=== PATIENT | female | born 1995 | race Caucasian/White ===

== ENCOUNTER 2019-05-19 03:15 | Emergency (ER) | payer SELFPAY ==
[~2019-05-19] VITALS: Ht 167.6 cm; Wt 49.9 kg
--- NOTE | 2019-05-19 03:46 | NUR ---
BIBBOYFRIEND C/O R SIDE ABDOMINAL PAIN X1 HOUR, PROGRESSIVELY GETTING WORSE, +VOMITING, DOES NOT RECAL LAST BM, TO ER EBD 2, VSS, URINE SENT TO LAB
[2019-05-19 03:51] LABS: APPEARANCE,URINE Clear (CLEAR); BILIRUBIN,URINE Negative (NEGATIVE); BLOOD, URINE Negative Ery/uL (NEGATIVE); COLOR,URINE Yellow (YELLOW); KETONES,URINE Negative (NEGATIVE); LEUKOCYTE ESTERASE ,URINE Negative (NEGATIVE); NITRITE, URINE Negative (NEGATIVE); PH,URINE 6.5 (5.0-8.0); PROTEIN,URINE Negative (NEGATIVE); UGLUCOSE Negative (NEGATIVE); UROBILINOGEN,URINE 0.2 EU/dL (0.2)
[2019-05-19] MEDS ORDERED: DOCUSATE SODIUM LIQ 100 MG/10 ML UDC ONE (04:12)
[2019-05-19] MEDS ORDERED: MAGNESIUM CITRATE 296 ML BOTTLE ONE (04:12)
[2019-05-19 04:30] VITALS: BP 116/91
[2019-05-19] MEDS ORDERED: MAGNESIUM CITRATE 296 ML BOTTLE PO ONE (04:30)
[2019-05-19] MEDS ORDERED: DOCUSATE SODIUM LIQ 100 MG/10 ML UDC PO ONE (04:30)
--- NOTE | 2019-05-19 04:30 | NUR ---
Patient discharged to home in stable condition. Written and verbal after care instructions given. Patient verbalizes understanding of instruction.
== END 2019-05-19 04:31 | disposition home or self-care (01) ==
LOC: ER 03:18
DX: K59.00 Constipation, unspecified (principal); F17.200 Nicotine dependence, unspecified, uncomplicated; Z88.0 Allergy status to penicillin
CPT/HCPCS: 74018; 81000-TC; 84703-TC